=== PATIENT | male | born 1980 | race Caucasian/White ===

== ENCOUNTER 2022-01-03 09:16 | Emergency (ER) | payer OTHER ==
[~2022-01-03] VITALS: Ht 167.6 cm; Wt 108.9 kg
[2022-01-03 10:50] VITALS: BP 146/92
[2022-01-03 12:45] VITALS: BP 94/51
[2022-01-03 13:00] VITALS: BP 117/73
[2022-01-03 13:15] VITALS: BP 121/79
== END 2022-01-03 14:32 | disposition home or self-care (01) ==
LOC: ED 09:16
DX: S68.522A Partial traumatic transphalangeal amputation of left thumb, initial encounter (principal); W23.0XXA Caught, crushed, jammed, or pinched between moving objects, initial encounter; Y93.89 Activity, other specified; Y92.89 Other specified places as the place of occurrence of the external cause; Y99.8 Other external cause status